=== PATIENT | male | born 1960 | race Caucasian/White ===

== ENCOUNTER 2016-10-20 08:03 | Emergency (ER) | payer MEDICAID ==
[~2016-10-20] VITALS: Ht 172.7 cm; Wt 95.3 kg
[2016-10-20 08:10] VITALS: BP 140/80; PULSE 114; RESP 17; TEMP 99; O2SAT 96
--- NOTE | 2016-10-20 08:10 | NUR ---
Patient to ER bed 8 to gown for evaluation. Side rails up. Report given to MARTIN Olson.
--- NOTE | 2016-10-20 08:40 | NUR ---
Pt report received from MARTIN Hicks. Pt with abcess to inferior umbilicus, red and swollen, scab noted to center. Pt denies drainage to site.
--- NOTE | 2016-10-20 08:50 | NUR ---
Dr. Cole at bedside to assess pt.
--- NOTE | 2016-10-20 09:00 | NUR ---
Dr. Cole at bedside to perform I&D. Pt tolerated procedure well.
[2016-10-20] MEDS ORDERED: LIDOCAINE/EPI 1% 1:100000 20 ML VIAL IJ ONE (09:30)
[2016-10-20] MEDS ORDERED: cefTRIAXone 1 GM VIAL IM ONE (10:00)
[2016-10-20 10:10] VITALS: BP 135/78; PULSE 88; RESP 20; TEMP 98.2; O2SAT 100
--- NOTE | 2016-10-20 10:10 | NUR ---
Patient given written and verbal discharge instructions and verbalizes understanding. ER MD discussed with patient the results and treatment provided. Patient in stable condition. ID arm band removed. Rx of Cephalexin and Bactrim DS given. Patient educated on pain management and to follow up with PMD. Pain Scale 0/10. Opportunity for questions provided and answered.
== END 2016-10-20 10:10 | disposition home or self-care (01) ==
LOC: SED 08:03
DX: L02.211 Cutaneous abscess of abdominal wall (principal); L03.311 Cellulitis of abdominal wall
CPT/HCPCS: 10060; 96372; 99283; J0696

== ENCOUNTER 2017-09-16 14:18 | Emergency (ER) | payer MEDICAID ==
[~2017-09-16] VITALS: Ht 172.7 cm; Wt 90.7 kg
[2017-09-16 14:20] VITALS: BP_SYST 128
--- NOTE | 2017-09-16 14:20 | NUR ---
Patient arrived via S ambulance with compliant of suicidal ideation, states that he would like to ride hi sbike in front of a car. 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 No sitter available at this time. Patient will remain on EMS gurney until safe room assignment can be made.
--- NOTE | 2017-09-16 15:00 | NUR ---
Patient to ER bed 3 to gown for evaluation. Side rails up. Report given to Vashti SALAZAR.
--- NOTE | 2017-09-16 15:15 | NUR ---
pt is jerking back and forth. will continue to monitor.
--- NOTE | 2017-09-16 15:30 | NUR ---
ER at bedside examining patient.
--- NOTE | 2017-09-16 15:30 | NUR ---
pt is sleeping in bed. no signs of distress. will continue to monitor.
--- NOTE | 2017-09-16 15:45 | NUR ---
pt is sleeping in bed, but is expressing pain. will continue to monitor.
--- NOTE | 2017-09-16 15:50 | NUR ---
Report obtained from Timi vitale laying in bed no s/s of distress at this time. Sitter at bedside
--- NOTE | 2017-09-16 16:00 | NUR ---
pt is sleeping in bed. pt said his pain was a 6/10 in his knees. stated his knees were burning. will continue to monitor.
--- NOTE | 2017-09-16 16:15 | NUR ---
pt is sleeping in bed. no signs of distress. will continue to monitor.
[2017-09-16 16:27] LABS: BASOPHILS % (AUTO) 0.7 % (0.0-2.0); EOSINOPHILS # (AUTO) 0.2 K/uL (0.0-0.4); EOSINOPHILS % (AUTO) 3.4 % (0.0-4.0); HEMATOCRIT 41.9 % (36-54); HEMOGLOBIN 13.8 g/dL (14.0-18.0); LYMPHOCYTES # (AUTO) 2.4 K/uL (1.0-5.5); LYMPHOCYTES % (AUTO) 36.1 % (20.5-51.5); MEAN CORPUSCULAR HEMOGLOBIN 32 pg (27-31); MEAN CORPUSCULAR HGB CONC 33 % (32-36); MEAN CORPUSCULAR VOLUME 96 fL (79.0-98.0); MONOCYTES # (AUTO) 0.6 K/uL (0.0-1.0); NEUTROPHILS # (AUTO) 3.5 K/uL (1.8-7.7); NEUTROPHILS % (AUTO) 50.8 % (40.0-70.0); PLATELET COUNT (AUTO) 340 K/uL (130-430); RED BLOOD CELL COUNT(AUTO) 4.34 MIL/uL (4.2-6.2); RED CELL DISTRIBUTION WIDTH 12.8 % (9.0-15.0); WHITE BLOOD COUNT (AUTO) 6.7 K/uL (4.8-10.8)
--- NOTE | 2017-09-16 16:30 | NUR ---
pt is sleeping in bed. no signs of distress. will continue to monitor.
[2017-09-16 16:36] LABS: ANION GAP 5 (5-15); CALCIUM 9.4 mg/dL (8.4-11.0); CHLORIDE 106 mmol/L (98-107); CREATININE 0.73 mg/dL (0.55-1.30); GLUCOSE 127 mg/dL (70-99); POTASSIUM 3.6 mmol/L (3.5-5.1); SODIUM SERUM 137 mmol/L (136-145); UREA NITROGEN, BLOOD 16 mg/dL (8-21)
[2017-09-16 16:39] LABS: GFR AFRICAN AMERICAN 143 mL/min (>90)
[2017-09-16 16:40] LABS: ACETAMINOPHEN < 1 ug/mL (1-30)
[2017-09-16 16:41] LABS: ALANINE AMINOTRANSFERASE 27 U/L (12-78); ALBUMIN 3.7 g/dL (3.4-4.8); ASPARTATE AMINOTRANSFERASE 19 U/L (10-37); TOTAL BILIRUBIN 0.3 mg/dL (0.0-1.0)
[2017-09-16 16:43] LABS: ALCOHOL, BLOOD < 3 mg/dL (<10)
--- NOTE | 2017-09-16 16:45 | NUR ---
pt is sleeping in bed. no signs of distress. will continue to monitor.
--- NOTE | 2017-09-16 17:00 | NUR ---
pt is sleeping in bed. requested some water. pt is moving back and forth grunting when asked if he had pain he said no. will continue to monitor.
--- NOTE | 2017-09-16 17:15 | NUR ---
pt is sleeping in bed. is rolling back and forth grunting and saying "ow" repeatedly, but when asked if he has pain he says his pain is in his left knee 02/10. will continue to monitor.
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
--- NOTE | 2017-09-16 17:31 | NUR ---
pt was speaking with RN. requested apple juice with ice. pt is currently asleep in bed. no signs of distress. will continue to monitor.
--- NOTE | 2017-09-16 17:46 | NUR ---
pt is sleeping in bed. no signs of distress. will continue to monitor.
--- NOTE | 2017-09-16 18:03 | NUR ---
pt is sleeping in bed. no signs of distress. will continue to monitor.
--- NOTE | 2017-09-16 18:11 | NUR ---
pt is rolling back and forth grunting and expressing pain. when asked what his pain scale is he said "6/10 but closer to an 8"
--- NOTE | 2017-09-16 18:15 | NUR ---
Patient resting. Will continue to monitor.
--- NOTE | 2017-09-16 18:30 | NUR ---
Patient resting. Will continue to monitor.
--- NOTE | 2017-09-16 18:30 | NUR ---
Dr. Vila notified pain 02/10
--- NOTE | 2017-09-16 18:45 | NUR ---
Patient resting. Will continue to monitor.
--- NOTE | 2017-09-16 18:58 | NUR ---
safety tray provided, wanded by security urine sent to lab, no s/s distress at this time
--- NOTE | 2017-09-16 19:00 | NUR ---
Patient resting. Will continue to monitor.
[2017-09-16 19:07] LABS: BILIRUBIN,URINE NEGATIVE (NEGATIVE); BLOOD, URINE NEGATIVE (NEGATIVE); CLARITY/URINE CLEAR (CLEAR); COLOR,URINE YELLOW (YELLOW); GLUCOSE,URINE NEGATIVE (NEGATIVE); KETONES,URINE NEGATIVE (NEGATIVE); LEUKOCYTE ESTERASE ,URINE NEGATIVE (NEGATIVE); NITRITE, URINE NEGATIVE (NEGATIVE); PROTEIN URINE NEGATIVE (NEGATIVE); UROBILINOGEN,URINE 0.2 (0.2-1.0)
[2017-09-16] MEDS: KETOROLAC TROMETHAMINE 60 MG/2 ML VIAL IM ONE (19:15)
--- NOTE | 2017-09-16 19:15 | NUR ---
Patient resting. Will continue to monitor
[2017-09-16 19:22] LABS: BARBITURATE, URINE NEGATIVE (NEG <=200); BENZODIAZEPINE, URINE NEGATIVE (NEG <=150); CANNABINOID, URINE POSITIVE (NEG <=50); COCAINE, URINE NEGATIVE (NEG <=150); METHAMPHETAMINES SCREEN,URINE NEGATIVE (NEG <=500); OPIATE, URINE NEGATIVE (NEG <=100); PHENCYCLIDINE SCREEN,URINE NEGATIVE (NEG <=25); UR TRICYCLIC ANTIDEPRESSANTS NEGATIVE (NEG <=300); URINE AMPHETAMINE POSITIVE (NEG <=500); URINE METHADONE NEGATIVE (NEG <=200); URINE OXYCODONE SCREEN NEGATIVE (NEG <=100); URINE PROPOXYPHENE SCREEN NEGATIVE (NEG <=300)
--- NOTE | 2017-09-16 19:30 | NUR ---
Patient resting. Will continue to monitor
--- NOTE | 2017-09-16 19:45 | NUR ---
Patient resting. Will continue to monitor.
--- NOTE | 2017-09-16 20:00 | NUR ---
Patient resting. Will continue to monitor.
--- NOTE | 2017-09-16 20:15 | NUR ---
Patient is resting. Will continue to monitor.
--- NOTE | 2017-09-16 20:30 | NUR ---
Patient resting. Will continue to monitor.
--- NOTE | 2017-09-16 20:45 | NUR ---
Patient resting. Will continue to monitor.
--- NOTE | 2017-09-16 21:00 | NUR ---
Patient is resting. Will continue to monitor
--- NOTE | 2017-09-16 21:15 | NUR ---
Patient is resting. Will continue to monitor.
--- NOTE | 2017-09-16 21:30 | NUR ---
Patient is resting. Will continue to monitor.
--- NOTE | 2017-09-16 21:45 | NUR ---
Patient is resting. Will continue to monitor.
--- NOTE | 2017-09-16 22:00 | NUR ---
Patient is resting. Will continue to monitor.
--- NOTE | 2017-09-16 22:15 | NUR ---
Patient resting. Will continue to monitor.
--- NOTE | 2017-09-16 22:30 | NUR ---
Patient resting in bed. Will continue to monitor.
--- NOTE | 2017-09-16 22:45 | NUR ---
Patient resting in bed. Will continue to monitor.
--- NOTE | 2017-09-16 23:00 | NUR ---
Patient resting in bed. Will continue to monitor.
--- NOTE | 2017-09-16 23:15 | NUR ---
Patient resting in bed. Will continue to monitor.
--- NOTE | 2017-09-16 23:30 | NUR ---
Patient resting in bed. Will continue to monitor
--- NOTE | 2017-09-16 23:45 | NUR ---
Patient resting in bed. Will continue to monitor.
--- NOTE | 2017-09-17 00:31 | NUR ---
pt resting in bed . will cont to monitor
--- NOTE | 2017-09-17 01:30 | NUR ---
Patient resting in bed. Will continue to monitor
--- NOTE | 2017-09-17 01:45 | NUR ---
Patient resting in bed. Will continue to monitor
--- NOTE | 2017-09-17 02:00 | NUR ---
Patient resting in bed. Will continue to monitor
--- NOTE | 2017-09-17 02:15 | NUR ---
Patient resting in bed. Will continue to monitor
--- NOTE | 2017-09-17 02:30 | NUR ---
Patient is resting in bed. Will continue to monitor.
--- NOTE | 2017-09-17 02:45 | NUR ---
Shruthi resting in bed. will continue to monitor.
--- NOTE | 2017-09-17 03:00 | NUR ---
Patient resting in bed. WIll continue to monitor.
--- NOTE | 2017-09-17 03:15 | NUR ---
Patient resting in bed. Will continue to monitor.
--- NOTE | 2017-09-17 03:30 | NUR ---
Patient resting in bed. WIll continue to monitor.
--- NOTE | 2017-09-17 03:45 | NUR ---
Patient resting in bed. WIll continue to monitor.
--- NOTE | 2017-09-17 04:00 | NUR ---
Patient resting in bed. Will continue to monitor.
--- NOTE | 2017-09-17 04:15 | NUR ---
Patient resting in bed. WIll continue to monitor.
--- NOTE | 2017-09-17 04:30 | NUR ---
Patient resting in bed. WIll continue to monitor.
--- NOTE | 2017-09-17 04:45 | NUR ---
Patient resting in bed. Will continue to monitor.
--- NOTE | 2017-09-17 05:00 | NUR ---
Patient resting in bed. Will continue to moonitor.
--- NOTE | 2017-09-17 05:15 | NUR ---
Patient resting in bed. will continue to monitor.
--- NOTE | 2017-09-17 05:30 | NUR ---
Patient restin in bed. WIll continue to monitor.
--- NOTE | 2017-09-17 06:15 | NUR ---
OBSERVATION NOTE PT IS ALSEEP WILL CONTINUE TO MONITOR
--- NOTE | 2017-09-17 06:30 | NUR ---
PT IS ASLEEP WILL CONTINUE TO MONITOR
--- NOTE | 2017-09-17 06:45 | NUR ---
PT IS ASLEEP WILL CONTINUE TO MONITOR
--- NOTE | 2017-09-17 07:00 | NUR ---
PT IS ASLEEP WILL CONTINUR TO MONITOR
--- NOTE | 2017-09-17 07:16 | NUR ---
Report given to Cesar SALAZAR. All care endorsed.
--- NOTE | 2017-09-17 07:25 | NUR ---
Pt offered morning tray. Pt refused. Pt returned to sleep. Sitter at bedside.
--- NOTE | 2017-09-17 07:34 | NUR ---
PT IS ASLEEP WILL CONTINUE TO MONITOR
--- NOTE | 2017-09-17 07:45 | NUR ---
PT IS ASLEEP WILL CONTINUE TO MONITOR
--- NOTE | 2017-09-17 08:30 | NUR ---
Pt is sleeping with no noted distress or discomfort at this time.
--- NOTE | 2017-09-17 08:45 | NUR ---
Pt denies pain at this time, resting comfortably with no noted distress
--- NOTE | 2017-09-17 09:00 | NUR ---
PT IS ASLEEP WILL CONTINUE TO MONITOR
--- NOTE | 2017-09-17 09:30 | NUR ---
PT IS TALKING TO NON FOOD RECEIVING CLERK FROM DEPARTMENT OF MENTAL HEALTH
--- NOTE | 2017-09-17 09:35 | NUR ---
PET team landfill grader at bedside.
--- NOTE | 2017-09-17 09:45 | NUR ---
PT IS EATING BREAKFAST
--- NOTE | 2017-09-17 10:00 | NUR ---
PT IS RESTING
--- NOTE | 2017-09-17 10:02 | NUR ---
PT IS STILL EATING BREAKFAST
--- NOTE | 2017-09-17 10:03 | NUR ---
Pt given morning tray. Pt consumed 100% tolerated well.Continuing to monitor. Pt pl;aced on 5150 hold.
[2017-09-17] MEDS: KETOROLAC TROMETHAMINE 60 MG/2 ML VIAL IM ONE (10:07)
[2017-09-17] MEDS: LORazepam 1 MG TABLET PO ONE ×2 (10:12→21:19)
--- NOTE | 2017-09-17 10:34 | NUR ---
PT IS RESTING WILL CONTINUE TO MONITOR
--- NOTE | 2017-09-17 10:45 | NUR ---
PT IS RESTING
--- NOTE | 2017-09-17 11:00 | NUR ---
PT IS RESTING
--- NOTE | 2017-09-17 11:15 | NUR ---
PT IS RESTING
--- NOTE | 2017-09-17 11:30 | NUR ---
PT IS RESTING
--- NOTE | 2017-09-17 11:41 | NUR ---
PT IS RESTING
--- NOTE | 2017-09-17 12:00 | NUR ---
PT IS RESTING
[2017-09-17] MEDS: HYDROcodone/ACETAMIN 10-325 MG TAB PO ONE (12:15)
--- NOTE | 2017-09-17 12:15 | NUR ---
PT IS RESTING NO CHANGES
--- NOTE | 2017-09-17 12:30 | NUR ---
PT IS RESTING NO CHANGES
--- NOTE | 2017-09-17 12:45 | NUR ---
PT IS RESTING NO CHANGES
--- NOTE | 2017-09-17 13:00 | NUR ---
PT IS RESTING NO CHANGES
--- NOTE | 2017-09-17 13:15 | NUR ---
PT IS RESTING NO CHANGES
--- NOTE | 2017-09-17 13:40 | NUR ---
Pt resting at this time on stable condition, VSS.
--- NOTE | 2017-09-17 13:48 | NUR ---
PT IS RESTING NO CHANGES
--- NOTE | 2017-09-17 14:00 | NUR ---
PT IS RESTING NO CHANGES
--- NOTE | 2017-09-17 14:15 | NUR ---
PT IS RESTING NO CHANGES
[2017-09-17] MEDS ORDERED: LORazepam 2 MG/ML VIAL (FOR ER USE) IVP ONE (14:30)
--- NOTE | 2017-09-17 14:30 | NUR ---
PT IS RESTING NO CHANGES
--- NOTE | 2017-09-17 14:45 | NUR ---
PT IS RESTING NO CHANGES
--- NOTE | 2017-09-17 15:00 | NUR ---
PT IS RESTING NO CHANGES
--- NOTE | 2017-09-17 15:15 | NUR ---
PT IS RESTING NO CHANGES
--- NOTE | 2017-09-17 15:30 | NUR ---
PT IS SITTING UP IN BED EATING A SANDWICH
--- NOTE | 2017-09-17 15:45 | NUR ---
PT IS DONE EATING NOW LAYNG DOWN IN BED WILL CONTINUE TO MONITOR
--- NOTE | 2017-09-17 16:00 | NUR ---
PT IS RESTING WILL CONTINUE TO MONITOR
--- NOTE | 2017-09-17 16:06 | NUR ---
Social Service Note: RETURNS CLERK contacted the following facilities: [facility]-RETURNS CLERK spoke to Mela, no beds available. [facility]-RETURNS CLERK spoke to Brittany, no beds available. [facility]-RETURNS CLERK spoke to Ksenia, no beds available. [facility]-RETURNS CLERK spoke to Annabelle, no bes available. [facility]-RETURNS CLERK spoke to Moshe, no beds available. [facility]-RETURNS CLERK spoke to Rich, no beds available. [facility]-RETURNS CLERK spoke to Sarah, they do not take pt's on 5150's. [facility]-RETURNS CLERK spoke to Kellen, no beds available. [facility]-RETURNS CLERK spoke to Sarah, they do not take pt's on a 5150's. [facility]-RETURNS CLERK spoke to Brooke, she asked for information to be faxed to ([phone]); RETURNS CLERK asked ED orthotic finish grinding technician to fax pt's information. [facility]-RETURNS CLERK spoke to Mimi, no beds available. [facility]-RETURNS CLERK spoke to Maida, no beds available. [facility]-RETURNS CLERK spoke to Carolina, no beds available.
--- NOTE | 2017-09-17 16:15 | NUR ---
PT IS RESTING WILL CONTINUE TO MONITOR
--- NOTE | 2017-09-17 16:30 | NUR ---
PT IS RESTING WILL CONTINUE TO MONITOR
--- NOTE | 2017-09-17 16:41 | NUR ---
PT IS RESTING WILL CONTINUE TO MONITOR
--- NOTE | 2017-09-17 17:00 | NUR ---
PT IS RESTING WILL CONTINUE TO MONITOR
--- NOTE | 2017-09-17 17:15 | NUR ---
PT IS RESTING WILL CONTINUE TO MONITOR
--- NOTE | 2017-09-17 17:30 | NUR ---
PT IS RESTING WILL CONTINUE TO MONITOR
--- NOTE | 2017-09-17 17:45 | NUR ---
PT IS RESTING WILL CONTINUE TO MONITOR
--- NOTE | 2017-09-17 18:00 | NUR ---
PT IS RESTING WILL CONTINUE TO MONITOR
--- NOTE | 2017-09-17 18:15 | NUR ---
PT IS RESTING WILL CONTINUE TO MONITOR
--- NOTE | 2017-09-17 18:49 | NUR ---
PT is sleeping. no signs of any kind of distress. Will continue to monitor.
--- NOTE | 2017-09-17 19:10 | NUR ---
PT is sleeping. no signs of any kind of distress. Will continue to monitor.
--- NOTE | 2017-09-17 19:15 | NUR ---
Patient placed on suicide precautions. Patient placed in room within close proximity to nurses' station for closer observation and monitoring. All clothing removed, placed in hospital gown. Metal detector wand used to further screen patient of any potential hazardous belongings. All belongings inventoried, placed in bags and removed from room. Cabinets unable to be locked in room three. BP and pulse oximeter cords, and babysitter leads removed. Sitter at bedside.
--- NOTE | 2017-09-17 19:15 | NUR ---
Pt is sleeping comfortably in bed. Will continue to monitor.
--- NOTE | 2017-09-17 19:25 | NUR ---
Pt given evening meal.Sitter at bedside.
--- NOTE | 2017-09-17 19:30 | NUR ---
PT is sleeping. no signs of any kind of distress. Will continue to monitor.
--- NOTE | 2017-09-17 20:29 | NUR ---
Accompanied security to tavia vitale. Pt consented and tolerated well
--- NOTE | 2017-09-17 21:40 | NUR ---
Patient to be transferred to [facility]. Pt is being transferred due to higher level of care. Receiving facility has accepting physician and available space. ER physician has signed transfer form. Patient or responsible libertarian has agreed to transfer and signed form. Patient belongings inventoried and will be sent with patient. Copy of nursing notes, lab reports, EKG, Physicians Orders and X-rays to be sent with patient. Report called to [facility] staff at receiving facility. Receiving physician is Dr. Richards. [facility] ambulance service on scene for transfer. ETA to facility is 30 min.
[2017-09-17 21:42] VITALS: BP_SYST 140
== END 2017-09-16 21:40 ==
LOC: SED 14:18
DX: R45.851 Suicidal ideations (principal); F19.10 Other psychoactive substance abuse, uncomplicated; F17.200 Nicotine dependence, unspecified, uncomplicated; Z71.6 Tobacco abuse counseling
CPT/HCPCS: 36415; 80053; 80307; 81003; 85025; 93005; 96372; 99285; G0480; G0481; G0482; J1885

== ENCOUNTER 2021-03-12 16:25 | Emergency (ER) | payer MEDICAID ==
[~2021-03-12] VITALS: Ht 172.7 cm; Wt 104.3 kg
--- NOTE | 2021-03-12 16:25 | NUR ---
Placed in room 5 . Placed on groundwater monitoring technician, blood pressure machine and pulse oximeter. To gown for exam. Side rails up. Report given to MARTIN Lake.
--- NOTE | 2021-03-12 16:30 | NUR ---
Patient to ER bed 5 to gown for evaluation. Side rails up.
--- NOTE | 2021-03-12 16:32 | NUR ---
Pt came to ER with complaint mild non productive cough and sore throat. Pt denies pain. AAOX4 resting in [facility]. VSS.
[2021-03-12 16:33] VITALS: BP_SYST 125
--- NOTE | 2021-03-12 16:53 | NUR ---
Covid, flu, and strep swab collected and sent to lab.
--- NOTE | 2021-03-12 16:59 | NUR ---
ER at bedside examining patient.
--- NOTE | 2021-03-12 17:10 | NUR ---
X-ray at bedside.
[2021-03-12 17:43] VITALS: BP_SYST 125
--- NOTE | 2021-03-12 17:43 | NUR ---
Patient given written and verbal discharge instructions and verbalizes understanding. ER MD discussed with patient the results and treatment provided. Patient in stable condition. ID arm band removed. Patient educated on pain management and to follow up with PMD. Pain Scale 0/10. Opportunity for questions provided and answered. Medication side effect fact sheet provided.
== END 2021-03-12 17:43 | disposition home or self-care (01) ==
LOC: SED 16:25
DX: B34.9 Viral infection, unspecified (principal); Z20.822 Contact with and (suspected) exposure to COVID-19
CPT/HCPCS: 36415; 71045; 86403; 86710; 87081; 99284

== ENCOUNTER 2021-03-23 23:58 | Emergency (ER) | payer MEDICAID ==
[~2021-03-23] VITALS: Ht 172.7 cm; Wt 104.3 kg
--- NOTE | 2021-03-24 | NUR ---
Patient to ER bed 3 to gown for evaluation. Side rails up.
[2021-03-24 00:08] VITALS: BP_SYST 128
--- NOTE | 2021-03-24 00:18 | NUR ---
PT ARRIVED TO ER WITH COMPLAINTS OF BILATERAL EYE PAIN AND REDNESS. PT HAS BEEN UP FOR 2 DAYS PER THE PT AND HAS BEEN USING METH AGAIN AFTER 21 DAYS SOBER. PT HAS RED EYES WITH DISCHARGE AND 10/10 PAIN TO BOTH EYES. PT SATTES LKITTLE RELIEF WHEN CLOSING EYES. PTS VISION SIS A BIT BLURRY. A&OX3, -CP,-SOB,-N/V/D
--- NOTE | 2021-03-24 00:22 | NUR ---
ER at bedside examining patient.
--- NOTE | 2021-03-24 00:31 | NUR ---
VISUAL ACUITY DONE
[2021-03-24 00:45] LABS: BILIRUBIN,URINE NEGATIVE (NEGATIVE); CLARITY/URINE CLEAR (CLEAR); COLOR,URINE YELLOW (YELLOW); GLUCOSE,URINE NEGATIVE (NEGATIVE); KETONES,URINE NEGATIVE (NEGATIVE); LEUKOCYTE ESTERASE ,URINE NEGATIVE (NEGATIVE); NITRITE, URINE NEGATIVE (NEGATIVE); PH,URINE 5.5 (5.0-8.0); PROTEIN URINE TRACE (NEGATIVE); UROBILINOGEN,URINE 0.2 (0.2-1.0)
[2021-03-24 00:47] LABS: BLOOD, URINE TRACE (NEGATIVE)
[2021-03-24 00:49] LABS: BACTERIA,URINE FEW /HPF (None Seen); WBC,URINE 0-3 /HPF (0-3)
--- NOTE | 2021-03-24 00:49 | NUR ---
Dr. Joseph bedside for eye exam procedure, well tolerated
[2021-03-24 00:56] LABS: CANNABINOID, URINE POSITIVE (NEG <=50); METHAMPHETAMINES SCREEN,URINE POSITIVE (NEG <=500); URINE AMPHETAMINE POSITIVE (NEG <=500)
[2021-03-24 00:57] LABS: BARBITURATE, URINE NEGATIVE (NEG <=200); BENZODIAZEPINE, URINE NEGATIVE (NEG <=150); COCAINE, URINE NEGATIVE (NEG <=150); OPIATE, URINE NEGATIVE (NEG <=100); PHENCYCLIDINE SCREEN,URINE NEGATIVE (NEG <=25); UR TRICYCLIC ANTIDEPRESSANTS NEGATIVE (NEG <=300); URINE METHADONE NEGATIVE (NEG <=200); URINE OXYCODONE SCREEN NEGATIVE (NEG <=100); URINE PROPOXYPHENE SCREEN NEGATIVE (NEG <=300)
[2021-03-24] MEDS ORDERED: KETOROLAC TROMETHAMINE 60 MG/2 ML VIAL IM ONE (01:08)
--- NOTE | 2021-03-24 01:12 | NUR ---
AMANDA LENSES PLACED TO FLUSH OUT BOTH EYES. PT TOLERATING WELL. 500ML EACH EYE
[2021-03-24] MEDS: KETOROLAC TROMETHAMINE 60 MG/2 ML VIAL IM ONE (01:16)
[2021-03-24] MEDS: NACL 0.9% 1,000 ML IV ONE (01:18)
--- NOTE | 2021-03-24 01:21 | NUR ---
PT REFUSED TO LEAVE THE AMANDA LENSE IN THE EYE. REMOVED AFTER ABOUT 100ML PER EYE
[2021-03-24] MEDS ORDERED: HYDR-3917 PO (02:01)
[2021-03-24] MEDS ORDERED: SULF5DRO EACH EYE (02:01)
[2021-03-24 02:09] VITALS: BP_SYST 132
--- NOTE | 2021-03-24 02:11 | NUR ---
Patient given written and verbal discharge instructions and verbalizes understanding. ER MD discussed with patient the results and treatment provided. Patient in stable condition. ID arm band removed. Rx of NORCO, SULFACETAMIDE SODIUM given. Patient educated on pain management and to follow up with PMD. Pain Scale 8/10. Opportunity for questions provided and answered. Medication side effect fact sheet provided.
== END 2021-03-24 02:09 | disposition home or self-care (01) ==
LOC: SED 23:58
DX: S05.01XA Injury of conjunctiva and corneal abrasion without foreign body, right eye, initial encounter (principal); S05.02XA Injury of conjunctiva and corneal abrasion without foreign body, left eye, initial encounter; F15.10 Other stimulant abuse, uncomplicated; Z79.899 Other long term (current) drug therapy; X58.XXXA Exposure to other specified factors, initial encounter; Y93.89 Activity, other specified; Y92.89 Other specified places as the place of occurrence of the external cause; Y99.8 Other external cause status
CPT/HCPCS: 80307; 81000; 96372; 99284; J1885

== ENCOUNTER 2021-03-30 09:27 | Emergency (ER) | payer MEDICAID ==
[~2021-03-30] VITALS: Ht 172.7 cm; Wt 104.3 kg
[2021-03-30 09:27] VITALS: BP_SYST 157
[~2021-03-30 09:27] MED LIST: HYDR-3917 PO; SULF5DRO EACH EYE
[2021-03-30] MEDS ORDERED: LIDOCAINE/EPI 2% 1:100000 20 ML VIAL INJ ONE (10:00)
[2021-03-30] MEDS ORDERED: HYDR-3917 PO (10:20)
[2021-03-30] MEDS ORDERED: NAPR-1172 PO (10:20)
[2021-03-30] MEDS ORDERED: CEPH500C2 PO (10:22)
[2021-03-30 11:09] VITALS: BP_SYST 157
== END 2021-03-30 11:10 | disposition home or self-care (01) ==
LOC: SED 09:27
DX: S80.11XA Contusion of right lower leg, initial encounter (principal); L02.415 Cutaneous abscess of right lower limb; Z79.899 Other long term (current) drug therapy; X58.XXXA Exposure to other specified factors, initial encounter; Y93.89 Activity, other specified; Y92.89 Other specified places as the place of occurrence of the external cause; Y99.8 Other external cause status
CPT/HCPCS: 73650-TC; 99284

== ENCOUNTER 2022-05-09 14:12 | Emergency (ER) | payer MEDICAID ==
[~2022-05-09] VITALS: Ht 172.7 cm; Wt 104.3 kg
[~2022-05-09 14:12] MED LIST changes: +CEPH-548 PO; +NAPR-1172 PO
[2022-05-09 15:00] VITALS: BP_SYST 117
--- NOTE | 2022-05-09 15:58 | NUR ---
PT bib self from home CC abdominal pain. Pt states nausea without emesis, diarrhea episodes daily for 3 days. Abdominal Pain level 7/10
--- NOTE | 2022-05-09 16:20 | NUR ---
ER at bedside examining patient.
--- NOTE | 2022-05-09 16:54 | NUR ---
Patient given written and verbal discharge instructions and verbalizes understanding. ER MD discussed with patient the results and treatment provided. Patient in stable condition. ID arm band removed. Opportunity for questions provided and answered. Medication side effect fact sheet provided.
[2022-05-09 16:55] VITALS: BP_SYST 117
== END 2022-05-09 16:55 | disposition home or self-care (01) ==
LOC: SED 14:12
DX: U07.1 COVID-19 (principal); R19.7 Diarrhea, unspecified; R10.84 Generalized abdominal pain; Z79.899 Other long term (current) drug therapy
CPT/HCPCS: 99281

== ENCOUNTER 2023-12-24 08:18 | Emergency (ER) | payer MEDICAID ==
[~2023-12-24] VITALS: Ht 172.7 cm; Wt 104.3 kg
[2023-12-24 08:44] VITALS: BP_SYST 116; PULSE 80; RESP 16; TEMP 97.1; O2SAT 97
[2023-12-24 09:57] VITALS: BP_SYST 116; PULSE 80; RESP 16; TEMP 97.1; O2SAT 97
== END 2023-12-24 09:51 | disposition home or self-care (01) ==
LOC: SED 08:18
DX: N48.30 Priapism, unspecified (principal); F15.10 Other stimulant abuse, uncomplicated; Z88.8 Allergy status to other drugs, medicaments and biological substances; Z79.899 Other long term (current) drug therapy
CPT/HCPCS: 99281